=== PATIENT | female | born 1975 | race Caucasian/White ===

== ENCOUNTER 2019-09-27 09:57 | Emergency (ER) | payer OTHER ==
[2019-09-27] MEDS ORDERED: ALBUTEROL SO4 HFA INHALER IH ONE (10:00)
[2019-09-27 10:08] VITALS: BMI 36.2
--- NOTE | 2019-09-27 10:19 | PDOC ---
Rapid Medical Evaluation Chief Complaint: Respiratory Time Seen by Provider: 09/27/19 10:00 Medical Evaluation: Allergies Allergy/AdvReac Type Severity Reaction Status Date / Time NSAIDS (Non-Steroidal Allergy Verified 09/27/19 10:02 Anti-Inflamma Vital Signs Temp Pulse Resp BP Pulse Ox 99 F 125 H 20 125/87 100 09/27/19 10:03 09/27/19 10:03 09/27/19 10:03 09/27/19 10:03 09/27/19 10:03 09/27/19 10:20 HPI: The patient is a 44 yr old with no past medical history, who presents for dry hacking cough x 2 weeks, brown diarrhea, headache and fevers for 3 days. The patient states tmax of 101.8. Pt with hx of asthma and with intermittent wheezing. The patient states does not hve inhaler so came to the ED for refill and evaluation. 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 The patient has no known exposure to coronavirus. - Recent travel. + difficulty breathing, + shortness of breath, - chest pain, - lightheadedness, - dizziness, - nausea, - vomiting, and + diarrhea. Other 12 point ROS reviewed and negative. EXAM: General: NAD, well-appearing, AAO x3. ENT: + rhinorrhea, - nasal congestion. pharynx pink, uvula midline Neck: FROM, no midline tenderness Lungs: Clear to auscultation bilateral without wheezes rales or rhonchi. Mild decreased lung sounds to right LL Normal excursion. Patient is able to speak in full sentences. Heart: Regular rate and rhythm, S1-S2 present, no murmurs rubs or gallops. Abdomen: Non-distended MSK/Extremities: no decreased ROM, no obvious deformities. No cyanosis Neuro: Normal gait, cranial nerves II through XII grossly intact. SKIN: No rashes, bruising. Color normal appearing A/P: Cough, fever, diarrhea Patient has hx of asthma, no recent hospitalizations, denies recent travel and known COVID exposure. CXR and albuterol inhaler with spacer ordered Patient does not meet criteria for testing at this time. We will refer the patient to outpatient testing clinics in the [facility] for further monitoring of their symptoms. Strict return precautions given. Instructed that if they should have shortness of breath, chest pain or difficulty breathing to return to the emergency room for further management and treatment. Recommend self-isolation for 14 days given symptoms. Rx given for prednisone and albuterol inhaler given from use in - isolation tent Discharge home I discussed the physical exam findings, ancillary test results and final diagnoses with the patient. I answered all of the patient's questions. The patient was satisfied with the care received and felt comfortable with the discharge plan and treatment plan. The Patient agrees to follow up with the primary care physician/specialist within 24-72 hours. Return precautions were given. 09/27/19 10:45 Pt cxr - for acute pathology. Reexam- lcta, vss. + BS to [facility] Discharge Disposition - Diagnosis Fever, Asthma - Discharge Dispostion Disposition: HOME Condition at time of disposition: Improved - Prescriptions Prescriptions: predniSONE [Deltasone -] 40 mg PO DAILY #8 tablet - Referrals - Patient Instructions Printed Discharge Instructions: DI for Asthma -- Adult, [facility]-Coronavirus Instructions Additional Instructions: Take prednisone until completed. Use your albuterol inhaler as needed Take Tylenol 500mg every 6 hours as needed for fever or pain Warm tea, honey, and salt water gargles may help your symptoms. Please self quarantine for two weeks and follow up with your primary care doctor and the department of health. You were seen for your cough and possible Rand virus (COVID-19) Please call the [facility] to make an appointment for a test [phone] You may take robitussin or other over the counter cough syrup. Follow the dosing instructions on the bottle. Please pretend like you tested positive for COVID and self-quarantine for two weeks and follow up with your primary care doctor and the department of health. Return to the ER for shortness of breath, difficulty breathing, chest pain, or if you have any changes in your symptoms. - Post Discharge Activity
[2019-09-27 10:45] VITALS: BP 93/62; PULSE 102; TEMP 99.3
== END 2019-09-27 10:53 | disposition home or self-care (01) ==
LOC: JER 09:57
PROC: 3E0F7GC Introduction of Other Therapeutic Substance into Respiratory Tract, Via Natural or Artificial Opening (ICD-10-PCS; principal; 2019-09-27)
DX: J45.909 Unspecified asthma, uncomplicated (principal); R19.7 Diarrhea, unspecified; Z88.6 Allergy status to analgesic agent
CPT/HCPCS: 71045-TC-FY; 99283-25